=== PATIENT | female | born 1935 | race African-American/Black ===

== ENCOUNTER 2018-01-01 16:03 | Emergency (ER) | payer MEDICARE, OTHER, MEDICAID ==
[~2018-01-01] VITALS: Ht 162.6 cm; Wt 100.0 kg
[2018-01-01] MEDS ORDERED: MORPHINE SULFATE 4 MG/ML CPJ (NOT FOR IM USE) IV STA (16:35)
[2018-01-01] MEDS ORDERED: ONDANSETRON HCL 4MG/2ML VIAL IV STA (16:35)
[2018-01-01] MEDS ORDERED: ASPIRIN 81MG TABLET PO ONE (16:45)
[2018-01-01] MEDS ORDERED: NITROGLYCERIN 0.4MG TABLET SL SL PRN (16:45)
[2018-01-01 17:15] LABS: BASOPHILS % 0.6 % (0.0-2.0); EOSINOPHILS % 1.5 % (0.0-5.0); HEMOGLOBIN. 10.5 g/dL (12.0-16.0); LYMPHOCYTES % 23.6 % (20.0-50.0); MEAN CORPUSCULAR HEMOGLOBIN 24.8 pg (28.0-32.0); MEAN CORPUSCULAR VOLUME 75.6 fL (81.0-99.0); MEAN PLATELET VOLUME 9.3 fl (7.4-10.4); MONOCYTES % 10.6 % (2.0-8.0); NEUTROPHILS % 63.7 % (40.0-76.0); PLATELET 249 x1000/uL (130-400); RED BLOOD CELL COUNT 4.23 mill/uL (4.2-5.4); RED CELL DISTRIBUTION WIDTH 17.2 % (11.6-14.6)
[2018-01-01 17:22] LABS: CHLORIDE 107 mEq/L (98-107)
[2018-01-01 17:24] LABS: INR 1.1; PARTIAL THROMBOPLASTIN TIME 26.6 sec (23.4-31.0)
[2018-01-01 21:54] VITALS: BP 145/35
== END 2018-01-02 00:04 | disposition home or self-care (01) ==
LOC: ER 16:08
DX: M25.511 Pain in right shoulder (principal); M16.0 Bilateral primary osteoarthritis of hip; J44.9 Chronic obstructive pulmonary disease, unspecified; E11.9 Type 2 diabetes mellitus without complications; I10 Essential (primary) hypertension
CPT/HCPCS: 36415; 71045; 73030; 73060; 73521; 80053; 83880; 84484; 85025; 85610; 85730; 93005; 96374; 96375; 99285; J2270; J2405